=== PATIENT | male | born 1970 | race Caucasian/White ===

== ENCOUNTER → 2020-07-27 10:00 | Outpatient (BNVA) | payer MEDICAID, SELFPAY | PROVIDERS: PCP Family Medicine; Visit Provider Urology | DX: N52.01 Erectile dysfunction due to arterial insufficiency (principal) | CPT/HCPCS: 99212 ==

== ENCOUNTER → 2021-01-25 08:46 | Outpatient (BNVA) | payer MEDICAID, SELFPAY | PROVIDERS: PCP Family Medicine; Visit Provider Urology | DX: N52.01 Erectile dysfunction due to arterial insufficiency (principal) | CPT/HCPCS: 99212 ==

== ENCOUNTER → 2021-07-28 11:27 | Outpatient (BNVA) | payer MEDICAID, SELFPAY | PROVIDERS: PCP Family Medicine; Visit Provider Urology | DX: Z13.89 Encounter for screening for other disorder (principal) ==

== ENCOUNTER 2023-09-26 08:30 | Outpatient (AMB) | payer OTHER, SELFPAY ==
--- NOTE | 2023-09-26 08:38 | A.OFFVIS_ITS ---
Intake Visit Reasons: follow up/ED (last seen 2021) Intake Note: Patient is Present for Follow Up Urology Medication: Sildenafil, Tadalafil Antibiotic Allergies: None Blood Thinners: None Patient is currently on Sildenafil no longer on tadalafil Allergies No Known Allergies Allergy (Verified 09/26/23 08:42) HPI Comments Details: Juan C GUTHRIE is a very pleasant male. They are a patient of Dr. Hammond. They are seen in the office today for the following urologic conditions. - erectile dysfunction - Peyronie's disease Erectile dysfunction follow-up 12 month Has had progressive disease with reduced responsiveness to on demand 50 mg sildenafil Retrial daily tadalafil with on demand 100 mg sildenafil Discussed reduction in cannabis use Encouraged recovery Erectile dysfunction: Better success with daily medications Review in 12 months He presents today for further evaluation of erectile dysfunction. Symptoms have been present for/since ongoing. Current treatment includes on demand sildenafil At this time he experiences erections 2/20 are partial and adequate for vaginal penetration, that undergo rapid detumesence after penetration, YOHAN 8-11 Moderate ED. Nocturnal erections do occur. Currently they are in a stable relationship. Associated problems hypertension No diabetes No dyslipidemia No depression No stress No decreased libido No pelvic surgery No Overall he is is not satisfied with the current management. Therapeutic plan includes continue on demand sildenafil PFSH Medical History Erectile dysfunction due to arterial insufficiency Surgical History H/O rectal sphincterotomy Review of Systems Const Denies chills and Denies fever(s) Card Reports no additional complaints and Denies syncope Resp Denies cough GI Denies abdominal pain and Denies heartburn Reports as per HPI and Denies change in libido Neuro Denies syncope Psych Denies change in libido Endo Denies change in libido Physical Exam Const General: cooperative, healthy appearing, comfortable and no acute distress Orientation/consciousness: patient oriented x3 HEENT Face and sinus: Yes normal facial exam Mouth: moist mucous membranes Neck Neck: Yes normal visual inspection, Yes full ROM and Yes trachea midline Chest Chest palpation & inspection: normal inspection of the chest Resp Effort & Inspection: normal respiratory effort, able to speak in complete sentences and no respiratory distress GI Inspection: Yes normal to inspection Back/Spine/Pelvis Cervical Spine: normal cervical lordosis Thoracic/Lumbar Spine: thoracic and lumbar spine normal to inspection Skin General skin exam: no rashes or lesions noted Neuro General: patient oriented x3, gait normal, tone normal and moves all extremities Extrem General: Yes normal to inspection and Yes capillary refill normal Assessment & Plan Assessment & Plan (1) Erectile dysfunction due to arterial insufficiency: Code(s): N52.01 - Erectile dysfunction due to arterial insufficiency Category: Medical Plan Up-to-date prescriptions Three-month follow-up Patient Instructions: Imaging studies, laboratory and physical exam results were discussed and reviewed in detail. No major barriers to patient understanding were identified. An opportunity to ask questions regarding the treatment plan was provided. All questions were answered. The patient expressed understanding and agreement with the above treatment plan. The patient is aware they should contact our office by phone for worsening of their current condition or the appearance of new urologic symptoms. Compliance is encouraged with any medications and followup testing that is ordered. It is a privilege to participate in the urologic care of your patient. If you have any questions or concerns regarding treatment for the above conditions, or other urologic issues, please do not hesitate to contact me. The office telephone contact is [phone]. This note is constructed using voice recognition software. While every effort has been made to ensure accuracy color control operator errors may have been included. Yours sincerely, Dr Stephane Anglin MD, J[facility] - Urology Providers of Expert, Compassionate Care for the Genitourinary System Coding Level of Care Code Est Pt Level 4 (82036) Diagnoses Erectile dysfunction due to arterial insufficiency N52.01
== END 2023-09-26 09:11 | disposition home or self-care (01) ==
PROVIDERS: PCP Family Medicine; Visit Provider Urology
DX: N52.01 Erectile dysfunction due to arterial insufficiency (principal)
CPT/HCPCS: 99213

== ENCOUNTER → 2023-09-26 08:30 | Outpatient (BNVA) | payer OTHER, SELFPAY | PROVIDERS: PCP Family Medicine; Visit Provider Urology | DX: N52.01 Erectile dysfunction due to arterial insufficiency (principal) | CPT/HCPCS: 99212 ==

== ENCOUNTER 2023-12-24 12:00 | Outpatient (AMB) | payer OTHER, SELFPAY ==
--- NOTE | 2023-12-24 12:00 | MHC.OFFVIS ---
Intake Visit Reasons: 3M Follow Up-ED Meds Intake Note: Patient is present for Telephone follow up Urology Med: Sildenafil, Tadalafil Antibiotic Allergy: None Allergies No Known Allergies Allergy (Verified 09/26/23 08:42) Medication List - Last Reconciled 12/24/23 by Stephane Anglin MD sildenafil 100 mg PO ONCE PRN 30 days tadalafil 5 mg PO DAILY 90 days HPI Comments Details: Juan C GUTHRIE is a very pleasant male. They are a patient of Dr. Hammond. They are seen in the office today for the following urologic conditions. - erectile dysfunction - Peyronie's disease Three-month follow-up Telemedicine Evaluation 15 min Consultation ComActivity Jaya Video Has had some improvement with daily tadalafil and on demand Would like to increase on demand 200 mg Refill was provided Previous discussion regarding reducing cannabis use Encouraged sleep hygiene Erectile dysfunction follow-up 12 month Has had progressive disease with reduced responsiveness to on demand 50 mg sildenafil Erectile dysfunction: Better success with daily medications He presents today for further evaluation of erectile dysfunction. Symptoms have been present for/since ongoing. Current treatment includes on demand sildenafil At this time he experiences erections 2/20 are partial and adequate for vaginal penetration, that undergo rapid detumesence after penetration, YOHAN 8-11 Moderate ED. Nocturnal erections do occur. Currently they are in a stable relationship. Associated problems hypertension No diabetes No dyslipidemia No depression No stress No decreased libido No pelvic surgery No Overall he is is not satisfied with the current management [facility] Medical History Erectile dysfunction due to arterial insufficiency Surgical History H/O rectal sphincterotomy Review of Systems Const All systems reviewed & are unremarkable except as noted in HPI and below Reports no additional complaints Resp Reports no additional complaints GI Reports no additional complaints Reports as per HPI Musc Reports no additional complaints Physical Exam Telemedicine evaluation Appropriate responses Regular breathing rate and rhythm HEENT Head: Yes normal to inspection Ears: hearing grossly normal bilaterally Eyes General: appearance normal, both eyes and all related structures Neck Neck: Yes normal visual inspection Chest Chest palpation & inspection: normal inspection of the chest Resp Effort & Inspection: normal respiratory effort and able to speak in complete sentences Telehealth Telehealth Location of provider rendering services: practice address Location of patient: address on file Patient Identification confirmed using: Name, : Yes Telehealth method: voice only Patient verbally consented to treatment: Yes Patient verbally consented to billing insurance company: Yes Patient informed of any privacy concerns related to visit: Yes Assessment & Plan Assessment & Plan (1) Erectile dysfunction due to arterial insufficiency: Code(s): N52.01 - Erectile dysfunction due to arterial insufficiency Category: Medical Plan Six-month follow-up office Medications: Refilled tadalafil 5 mg PO DAILY 90 days 90 tabs 1RF sexual activity N52.01 - Erectile dysfunction due to arterial insufficiency sildenafil administer 60 minutes before intended activity 100 mg PO ONCE 30 days PRN 30 tabs 0RF sexual activity N52.01 - Erectile dysfunction due to arterial insufficiency Patient Instructions: Imaging studies, laboratory and physical exam results were discussed and reviewed in detail. No major barriers to patient understanding were identified. An opportunity to ask questions regarding the treatment plan was provided. All questions were answered. The patient expressed understanding and agreement with the above treatment plan. The patient is aware they should contact our office by phone for worsening of their current condition or the appearance of new urologic symptoms. Compliance is encouraged with any medications and followup testing that is ordered. It is a privilege to participate in the urologic care of your patient. If you have any questions or concerns regarding treatment for the above conditions, or other urologic issues, please do not hesitate to contact me. The office telephone contact is [phone]. This note is constructed using voice recognition software. While every effort has been made to ensure accuracy philosophy professor errors may have been included. Yours sincerely, Dr Stephane Anglin MD, [facility] - Urology Providers of Expert, Compassionate Care for the Genitourinary System Coding Level of Care Code Tele Est Pt Level 3 (94377) Diagnoses Erectile dysfunction due to arterial insufficiency N52.01
== END 2023-12-24 12:32 | disposition home or self-care (01) ==
LOC: HO.HUSH 12:00
PROVIDERS: PCP Family Medicine; Visit Provider Urology
DX: N52.01 Erectile dysfunction due to arterial insufficiency (principal)
CPT/HCPCS: 99213

== ENCOUNTER → 2023-12-24 12:00 | Outpatient (BNVA) | payer OTHER, SELFPAY | PROVIDERS: PCP Family Medicine; Visit Provider Urology ==

== ENCOUNTER 2024-07-08 09:54 | Outpatient (AMB) | payer OTHER, SELFPAY ==
--- NOTE | 2024-07-08 09:55 | MHC.OFFVIS ---
Intake Visit Reasons: 6m follow up Intake Note: Patient is present for 6M F/U Urology Medication:SILDENAFIL Antibiotic Allergy:NONE Blood Thinner:NONE Parts Finisher Required: No Allergies No Known Allergies Allergy (Verified 07/08/24 09:56) HPI Comments Details: Juan C GUTHRIE is a very pleasant male. They are a patient of Dr. Hammond. They are seen in the office today for the following urologic conditions. - erectile dysfunction - Peyronie's disease Six-month follow-up Improvement is able to obtain but not maintain an erection Discussed increasing tadalafil to 10 mg with on demand 200 mg sildenafil Previous discussion regarding reducing cannabis use - switch to edibles Encouraged sleep hygiene Erectile dysfunction: Better success with daily medications He presents today for further evaluation of erectile dysfunction. Symptoms have been present for/since ongoing. Current treatment includes on demand sildenafil At this time he experiences erections 2/20 are partial and adequate for vaginal penetration, that undergo rapid detumesence after penetration, YOHNA 8-11 Moderate ED. Nocturnal erections do occur. Currently they are in a stable relationship. Associated problems hypertension No diabetes No dyslipidemia No depression No stress No decreased libido No pelvic surgery No Overall he is is not satisfied with the current management [facility] Medical History Erectile dysfunction due to arterial insufficiency Surgical History H/O rectal sphincterotomy Review of Systems Const Denies chills and Denies fever(s) Card Reports no additional complaints and Denies syncope Resp Denies cough GI Denies abdominal pain and Denies heartburn Reports as per HPI and Denies change in libido Neuro Denies syncope Psych Denies change in libido Endo Denies change in libido Physical Exam Const General: cooperative, healthy appearing, comfortable and no acute distress Orientation/consciousness: patient oriented x3 HEENT Face and sinus: Yes normal facial exam Mouth: moist mucous membranes Neck Neck: Yes normal visual inspection, Yes full ROM and Yes trachea midline Chest Chest palpation & inspection: normal inspection of the chest Resp Effort & Inspection: normal respiratory effort, able to speak in complete sentences and no respiratory distress GI Inspection: Yes normal to inspection Back/Spine/Pelvis Cervical Spine: normal cervical lordosis Thoracic/Lumbar Spine: thoracic and lumbar spine normal to inspection Skin General skin exam: no rashes or lesions noted Neuro General: patient oriented x3, gait normal, tone normal and moves all extremities Extrem General: Yes normal to inspection and Yes capillary refill normal Assessment & Plan Assessment & Plan (1) Erectile dysfunction due to arterial insufficiency: Code(s): N52.01 - Erectile dysfunction due to arterial insufficiency Category: Medical Plan Six-month follow-up PSA Orders: Orders Prostate Specific Antigen 6 Months N52.01 - Erectile dysfunction due to arterial insufficiency Patient Instructions: This note is constructed using voice recognition software. While every effort has been made to ensure accuracy pilot control operator helper errors may have been included. Imaging studies, laboratory and physical exam results were discussed and reviewed in detail. No major barriers to patient understanding were identified. An opportunity to ask questions regarding the treatment plan was provided. All questions were answered. The patient expressed understanding and agreement with the above treatment plan. The patient is aware they should contact our office by phone for worsening of their current condition or the appearance of new urologic symptoms. Compliance is encouraged with any medications and followup testing that is ordered. It is a privilege to participate in the urologic care of your patient. If you have any questions or concerns regarding treatment for the above conditions, or other urologic issues, please do not hesitate to contact me. The office telephone contact is [phone]. Sincerely, Dr Stephane Anglin MD, [facility] - Urology Compassionate Specialist Care for the Genitourinary System Coding Level of Care Code Est Pt Level 4 (98748) Diagnoses Erectile dysfunction due to arterial insufficiency N52.01
--- OUTSIDE RECORDS SUMMARY | 2024-07-08 11:15 | XMS_ITS | Clinical Summary ---
Author Organization [facility] Address [address] [place] [address] Care Team Providers Care Community Pharmacist Name Role Phone Ben Hammond MD Primary Care Provider [phone] Allergies No known active allergies Medications Medication Sig Dispensed Refills Start Date End Date Status Multiple Vitamins-Minerals (MULTIVITAMIN ADULT PO) Take by mouth. 0 Active Active Problems Problem Noted Date Diagnosed Date Anal fissure 08/04/2016 Anal fissure 06/18/2016 Anal fissure 06/10/2016 Social History Tobacco Use Types Packs/Day Years Used Date Smoking Tobacco: Never Alcohol Use Standard Drinks/Week Comments No 0 (1 standard drink = 0.6 oz pur e alcohol) Sex and Gender Information Value Date Recorded Sex Assigned at Not on file Gender Identity Not on file Sexual Orientation Not on file Last Filed Vital Signs Vital Sign Reading Time Taken Comments Blood Pressure 122/74 07/30/2016 2:56 PM EDT Pulse 76 07/30/2016 2:56 PM EDT Temperature 36.4 ??C (97.5 ??F) 06/05/2016 7:45 PM ES T Respiratory Rate 14 06/05/2016 8:45 PM EST Oxygen Saturation 98% 06/05/2016 8:45 PM EST Inhaled Oxygen Concentration - - Weight 92.5 kg (204 lb) 07/30/2016 2:56 PM EDT Height 180.3 cm (5' 11 ) 07/30/2016 2:56 PM EDT Body Mass Index 28.45 07/30/2016 2:56 PM EDT Plan of Treatment Health Maintenance Due Date Last Done Comments Hepatitis B Vaccines (1 of 3 - 3-dose series) 1971 Hepatitis C Screening 1971 COVID-19 Vaccine (#1) 1971 Depression Screening 1983 Preventative Health Evaluation 1989 DTap / Tdap / Td (1 - Tdap) 1990 Colon Cancer Screening (Colonoscopy) 2016 Shingrix-Zoster Vaccine (1 of 2) 2021 Influenza Vaccine (#1) 2023 Pneumococcal Vaccine Aged Out No long er eligible based on patient's age to complete this topic RSV Ped < 20 months Aged Out No longe r eligible based on patient's age to complete this topic Care Teams Community Pharmacist Relationship Specialty Start Date End Date Ben Hammond MD [address] [place] [address] PCP - General Family Medicine 06/04/16
== END 2024-07-08 10:37 | disposition home or self-care (01) ==
LOC: HO.HUSH 09:54
PROVIDERS: PCP Family Medicine; Visit Provider Urology
DX: N52.01 Erectile dysfunction due to arterial insufficiency (principal)
CPT/HCPCS: 99214

== ENCOUNTER → 2024-07-08 09:54 | Outpatient (BNVA) | payer OTHER, SELFPAY | PROVIDERS: PCP Family Medicine; Visit Provider Urology | DX: N52.01 Erectile dysfunction due to arterial insufficiency (principal); N48.6 Induration penis plastica | CPT/HCPCS: 99212 ==

== ENCOUNTER 2025-01-08 10:37 | Outpatient (AMB) | payer OTHER, SELFPAY ==
--- NOTE | 2025-01-08 10:37 | A.OFFVIS_ITS ---
Intake Visit Reasons: 6m/PSA Intake Note: Patient is present for 6M F/U Urology Medication:SILDENAFIL,TADALAFIL Antibiotic Allergy:NONE Blood Thinner:NONE Labs done 01/07/25 PSA 0.3 Assistant Floor Covering Printer Required: No Accompanied by: Self / Same As Patient Allergies No Known Allergies Allergy (Verified 01/08/25 10:38) HPI Comments Details: Juan C GUTHRIE is a very pleasant male. They are a patient of Dr. Hammond. They are seen in the office today for the following urologic conditions. - erectile dysfunction - Peyronie's disease Six-month follow-up Improvement is able to obtain but not maintain an erection Discussed increasing tadalafil to 10 mg with on demand 200 mg sildenafil Previous discussion regarding reducing cannabis use - switch to edibles Encouraged sleep hygiene Six-month follow-up T labs Try and get waist size to 36 inches Erectile dysfunction: Better success with daily medications PSA 01/07 0.3 He presents today for further evaluation of erectile dysfunction. Symptoms have been present for/since ongoing. Current treatment includes on demand sildenafil At this time he experiences erections 2/20 are partial and adequate for vaginal penetration, that undergo rapid detumesence after penetration, YOHAN 8-11 Moderate ED. Nocturnal erections do occur. Currently they are in a stable relationship. Overall he is is not satisfied with the current management [facility] Medical History Erectile dysfunction due to arterial insufficiency Surgical History H/O rectal sphincterotomy Review of Systems Const Denies chills and Denies fever(s) Card Reports no additional complaints and Denies syncope Resp Denies cough GI Denies abdominal pain and Denies heartburn Reports as per HPI and Denies change in libido Neuro Denies syncope Psych Denies change in libido Endo Denies change in libido Physical Exam Const General: cooperative, healthy appearing, comfortable and no acute distress Orientation/consciousness: patient oriented x3 HEENT Face and sinus: Yes normal facial exam Mouth: moist mucous membranes Neck Neck: Yes normal visual inspection, Yes full ROM and Yes trachea midline Chest Chest palpation & inspection: normal inspection of the chest Resp Effort & Inspection: normal respiratory effort, able to speak in complete sentences and no respiratory distress GI Inspection: Yes normal to inspection Back/Spine/Pelvis Cervical Spine: normal cervical lordosis Thoracic/Lumbar Spine: thoracic and lumbar spine normal to inspection Skin General skin exam: no rashes or lesions noted Neuro General: patient oriented x3, gait normal, tone normal and moves all extremities Extrem General: Yes normal to inspection and Yes capillary refill normal Assessment & Plan Assessment & Plan (1) Erectile dysfunction due to arterial insufficiency: Code(s): N52.01 - Erectile dysfunction due to arterial insufficiency Category: Medical Plan Discussed penile constriction band Orders: Orders Testosterone, Free/Total 5 Months N52.01 - Erectile dysfunction due to arterial insufficiency Medications: Refilled sildenafil administer 60 minutes before intended activity 100 mg PO ONCE PRN 30 tabs 2RF sexual activity 30 days N52.01 - Erectile dysfunction due to arterial insufficiency tadalafil 10 mg PO DAILY 90 tabs 1RF sexual activity 90 days N52.01 - Erectile dysfunction due to arterial insufficiency Patient Instructions: This note is constructed using voice recognition software. While every effort has been made to ensure accuracy field sales engineer errors may have been included. Imaging studies, laboratory and physical exam results were discussed and reviewed in detail. No major barriers to patient understanding were identified. An opportunity to ask questions regarding the treatment plan was provided. All questions were answered. The patient expressed understanding and agreement with the above treatment plan. The patient is aware they should contact our office by phone for worsening of their current condition or the appearance of new urologic symptoms. Compliance is encouraged with any medications and followup testing that is ordered. It is a privilege to participate in the urologic care of your patient. If you have any questions or concerns regarding treatment for the above conditions, or other urologic issues, please do not hesitate to contact me. The office telephone contact is [phone]. Sincerely, Dr Stephane Anglin MD, [facility] - Urology Compassionate Specialist Care for the Genitourinary System Coding Level of Care Code Est Pt Level 3 (70755) Complex EM visit Add On G2211 Diagnoses Erectile dysfunction due to arterial insufficiency N52.01
--- OUTSIDE RECORDS SUMMARY | 2025-01-08 12:07 | XMS_ITS | Clinical Summary ---
Author Organization [facility] Address [address] [place] [address] Care Team Providers Care Central Office Operator Supervisor Name Role Phone Ben Hammond MD Primary Care Provider [phone] Allergies No known active allergies Medications Medication [...] 76 07/30/2016 2:56 PM EDT Temperature 36.4 C (97.5 F) 06/05/2016 7:45 PM EST Respiratory Rate 14 06/05/2016 8:45 PM EST [...] (1 of 2) 2021 Influenza Vaccine (#1) 2024 Pneumococcal Vaccine Aged Out No long er eligible based on patient's age to complete this topic RSV Ped < 20 months Aged Out No longe r eligible based on patient's age to complete this topic Care Teams Central Office Operator Supervisor Relationship Specialty Start Date End Date Ben Hammond MD [address] [place] [id number] PCP - General Family Medicine 06/04/16
== END 2025-01-08 11:07 | disposition home or self-care (01) ==
LOC: HO.HUSH 10:37
PROVIDERS: PCP Family Medicine; Visit Provider Urology
DX: N52.01 Erectile dysfunction due to arterial insufficiency (principal)
CPT/HCPCS: 99213; G2211

== ENCOUNTER → 2025-01-08 10:37 | Outpatient (BNVA) | payer OTHER, SELFPAY | PROVIDERS: PCP Family Medicine; Visit Provider Urology | DX: N52.01 Erectile dysfunction due to arterial insufficiency (principal) | CPT/HCPCS: 99212 ==